=== PATIENT | male | born 1990 | race Caucasian/White ===

== ENCOUNTER 2018-10-27 01:13 | Emergency (ER) | payer OTHER ==
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
[2018-10-27] MEDS: DIPH,PERTUSS(ACELL),TET VAC/PF 0.5 ML DISP.SYRIN IM ONE (02:00)
[2018-10-27 02:22] VITALS: BP 128/74
== END 2018-10-27 02:10 | disposition home or self-care (01) ==
LOC: ED 01:13
DX: M25.522 Pain in left elbow (principal); V89.2XXA Person injured in unspecified motor-vehicle accident, traffic, initial encounter; Y99.8 Other external cause status
CPT/HCPCS: 73090; 90715; 99283; 99284

== ENCOUNTER 2018-12-09 04:25 | Emergency (ER) | payer OTHER ==
[2018-12-09] MEDS: ONDANSETRON HCL/PF 4 MG/ 2ML VIAL IVP ONE (04:50)
[2018-12-09] MEDS: 0.9 % SODIUM CHLORIDE 1,000 ML IV ONE (05:05)
[2018-12-09] MEDS: PROMETHAZINE HCL 25 MG/ML VIAL ONE (05:05)
[2018-12-09] MEDS: PROMETHAZINE HCL 25 MG in 0.9 % SODIUM CHLORIDE 50 ML IV ONE (05:05)
[2018-12-09 05:14] LABS: eGFR (Non-African) > 60
--- NOTE | 2018-12-09 05:14 | ED Physician Documentation ---
Nausea/Vomiting/Diarrhea - HISTORIAN Historian: patient - HPI Chief Complaint: Nausea,Vomiting,Diarrhea Additional Information: 28 year old male presents to the ER with c/o n/v/d that started yesterday; his daughter is also being seen for the same symptoms. He denies any fever or chills. Onset: days ago Duration: none Timing: gradual onset Context: denies: out of country travel, bad food Severity: moderate - Associated Symptoms Vomiting: mild, bilious Diarrhea: mild Abdominal Pain: cramping - ROS CONST: none CVS/RESP: denies: shortness of breath, cough GI/: none EYES/ENT: none NEURO/PSYCH: none - PAST HX Past History: none Surgeries/Procedures: other (left knee) Immunizations: UTD Allergies/Adverse Reactions: Allergies Allergy/AdvReac Type Severity Reaction Status Date / Time No Known Allergies Allergy Verified 10/27/18 01:21 Home Medications: Ambulatory Orders Medication Instructions Recorded Ondansetron HCl Rapdis [Zofran Odt] 4 mg PO Q6 PRN #15 tab.rapdis 12/09/18 - SOCIAL HX Smoking History: non-smoker Alcohol Use: none Drug Use: none - FAMILY HX Family History: none - VITAL SIGNS Vital Signs: Vital Signs Temp Pulse Resp BP Pulse Ox 98.2 F 99 H 20 124/75 99 12/09/18 07:06 12/09/18 07:06 12/09/18 07:06 12/09/18 07:06 12/09/18 07:06 - REVIEWED ASSESSMENTS Nursing Assessment Reviewed: Yes Vitals Reviewed: Yes Progress - Progress Progress: 06:45 patient is feeling better; no n/v/d since medication given; awaiting results of CT ED Results Lab/Radiology - Lab Results Lab Results: Lab Results 12/09/18 12/09/18 12/09/18 06:50 05:00 05:00 WBC 24.20 K/ul H K/ul (4.00-12.00) RBC 6.03 M/ul H M/ul (3.90-5.20) Hgb 18.7 g/dL H g/dL (12.0-18.0) Hct 54.5 % H % (37.0-53.0) MCV 90.0 fl fl (80.0-100.0) MCH 31.0 pg pg (28.0-34.0) MCHC 34.3 g/dL g/dL (30.0-36.0) RDW 12.5 % % (11.3-14.3) Plt Count 229 K/mm3 K/mm3 (130-400) Seg Neutrophils % 91 % H % (39-79) Lymphocytes % 3 % L % (16-50) Monocytes % 3 % % (0-11) Eosinophils % 2 % % (0-7) Basophils % 1 % % (0-2) Plt Morphology Comment Normal (NORMAL) RBC Morph Comment Normal (NORMAL) Sodium 143 mmol/L mmol/L (137-145) Potassium 4.1 mmol/L mmol/L (3.5-5.1) Chloride 104 mmol/L mmol/L (98-107) Carbon Dioxide 20 mmol/L L mmol/L (22-30) Anion Gap 23.1 BUN 18 mg/dL mg/dL (9-20) Creatinine 0.96 mg/dL mg/dL (0.66-1.25) Est GFR ( Amer) > 60 (60 - ) Est GFR (Non-Af Amer) > 60 (60 - ) Glucose 154 mg/dL H mg/dL (74-106) Calcium 10.2 mg/dL mg/dL (8.4-10.2) Total Bilirubin 1.4 mg/dL H mg/dL (0.2-1.3) AST 57 U/L H U/L (15-46) ALT 52 U/L H U/L (0-50) Alkaline Phosphatase 104 U/L U/L (38-126) Total Protein 10.7 g/dL H g/dL (6.3-8.2) Albumin 5.3 g/dL H g/dL (3.5-5.0) Amylase 119 U/L H U/L (30-110) Lipase 153 U/L U/L (23-300) - Radiology Radiology Impressions: Abdomen/pelvis with contrast History: Abdominal pain No comparison studies Clear lung bases. No free intraperitoneal air. No acute osseous pathology The liver, gallbladder, spleen adrenal glands are within normal limits. No hydronephrosis. Small groin herniae contain fat. Pelvic phleboliths Distal ureters are not well seen. Bulky pancreatic head. Wall thickening around the 2nd portion of the duodenum A normal appendix. No bowel obstruction. Small bowel loops are fluid-filled. Jejunal wall thickening. Impression: 1. Jejunal wall thickening. Small bowel loops are fluid-filled, findings suggestive of enteritis. 2. Mild prominence of the pancreatic head and second portion of duodenum/ bulky pancreatic head needs further evaluation with MRI and MRCP to exclude a lesion. GI evaluation is suggested. 3. Normal appendix. No hydronephrosis. No biliary dilatation. Fat containing supraumbilical ventral hernia is present Electronically signed on Dec 09, 2018 6:49:34 AM CDT by: Liaz Brizuela Discussed with collaborator; patient is to follow up with PCP - Orders Orders: ED Orders Category Date Time Status Place IV Lock 1T Care 12/09/18 04:[address] ABD & PELVIS W & W/O CON Stat Exams 12/09/18 Completed AMYLASE Routine Lab 12/09/18 05:00 Completed CBC/PLATELET/DIFF Routine Lab 12/09/18 05:00 Completed CMP Routine Lab 12/09/18 05:00 Completed LIPASE Stat Lab 12/09/18 06:50 Completed 0.9 % Sodium Chloride [Normal Saline] 1,000 ml Med 12/09/18 04:49 Discontinued IV Q1H Ondansetron HCl/Pf [Zofran] Med 12/09/18 04:49 Discontinued 4 mg IVP NOW ONE Promethazine HCl [Phenergan] Med 12/09/18 04:57 Discontinued 25 mg .ROUTE .STK-MED ONE Promethazine HCl [Phenergan] 25 mg Med 12/09/18 04:57 Discontinued 0.9 % Sodium Chloride [Normal Saline] 50 ml IV NOW Nausea Physical Exam - EXAM General Appearance: alert, mild distress EENT: eye inspection normal, ENT inspection normal, pharynx normal, no signs of dehydration Neck: normal inspection Respiratory: breath sounds normal CVS: heart sounds normal, equal pulses Abdomen: tenderness ("sore") Skin: warm/dry, normal color Extremities: non-tender, normal range of motion Neuro/Psych: oriented X3, motor nml, sensation nml, mood/affect nml, cognition normal Discharge Clincal Impression: Nausea & vomiting Prescriptions: Ondansetron HCl Rapdis [Zofran Odt] 4 mg PO Q6 PRN #15 tab.rapdis PRN Reason: Nausea and vomiting Referrals: Mague Samuel FNP [Primary Care Provider] - 2 Days Additional Instructions: May take Zofran 4 mg by mouth every 6 hours as needed for nausea and vomiting Start with clear liquids and advance diet as tolerated Follow up with PCP next week for re-evaluation Condition: Good Disposition: 01 HOME, SELF-CARE Decision to Admit: NO Decision Time: 08:44
[2018-12-09 07:22] VITALS: BP 124/75
[2018-12-09 07:36] LABS: BASOPHILS % 1 % (0-2); SEGMENTED NEUTROPHILS % 91 % (39-79)
--- NOTE | 2018-12-12 10:21 | Diagnostic Imaging Report ---
PATIENT MR#: [id number] PATIENT PATIENT NAME: ALEXSANDER LEAVITT DATE OF : 1990 REFERRING PHYSICIAN: Mandy Meza EXAM DATE: 12/09/2018 ACCESSION NUMBER: [id number] EXAM DESCRIPTION: CT ABD PELVIS W W/ ADDENDUM: Abdomen/pelvis with and without contrast History: Abdominal pain No comparison studies Clear lung bases. No free intraperitoneal air. No acute osseous pathology The liver, gallbladder, spleen adrenal glands are within normal limits. No hydronephrosis. Small groi n herniae contain fat. Pelvic phleboliths Distal ureters are not well seen. Bulky pancreatic head. Wall thickening around the 2nd portion of th e duodenum A normal appendix. No bowel obstruction. Small bowel loops are fluid-filled. Jejunal wall thickening. Impression: 1. Jejunal wall thickening. Small bowel loops are fluid-filled, findings suggestive of enteritis. 2. Mild prominence of the pancreatic head and second portion of duodenum/ bulky pancreatic head needs further evaluation with MRI and MRCP to exclude a lesion. GI evaluation is suggested. 3. Normal appendix. No hydronephrosis. No biliary dilatation. Fat containing supraumbilical ventral h ernia is present Abdomen/pelvis with contrast History: Abdominal pain No comparison studies Clear lung bases. No free intraperitoneal air. No acute osseous pathology The liver, gallbladder, spleen adrenal glands are within normal limits. No hydronephrosis. Small groi n herniae contain fat. Pelvic phleboliths Distal ureters are not well seen. Bulky pancreatic head. Wall thickening around the 2nd portion of th e duodenum A normal appendix. No bowel obstruction. Small bowel loops are fluid-filled. Jejunal wall thickening. Impression: 1. Jejunal wall thickening. Small bowel loops are fluid-filled, findings suggestive of enteritis. 2. Mild prominence of the pancreatic head and second portion of duodenum/ bulky pancreatic head needs further evaluation with MRI and MRCP to exclude a lesion. GI evaluation is suggested. 3. Normal appendix. No hydronephrosis. No biliary dilatation. Fat containing supraumbilical ventral h ernia is present Read by: Dr. Liza Brizuela Transcribed by: Transcribed Date: Electronically signed by: Dr. Liza Brizuela Date signed: 12/12/2018 10:21:10 AM
== END 2018-12-09 07:06 | disposition home or self-care (01) ==
LOC: ED 04:25
DX: R11.2 Nausea with vomiting, unspecified (principal); R19.7 Diarrhea, unspecified; R10.9 Unspecified abdominal pain
CPT/HCPCS: 74178; 80053; 82150; 83690; 85025; 96361; 96374; 99282; 99284; J2550; J7030; Q9967; S1016